=== PATIENT | female | born 1970 | race Caucasian/White ===

== ENCOUNTER 2017-11-29 08:59 | Emergency (ER) | END 2017-11-29 12:05 | disposition home or self-care (01) ==

== ENCOUNTER 2018-06-27 09:30 | Emergency (ER) | payer OTHER ==
[~2018-06-27] VITALS: Ht 172.7 cm; Wt 89.6 kg
[~2018-06-27 09:30] MED LIST: ACET500C5 PO; DOCU-144 PO; NITR-58 PO; ONDA4TAB8 PO; POLY17PO6 PO
[2018-06-27 09:39] VITALS: Ht 172.7 cm; Wt 89.6 kg
[2018-06-27] MEDS ORDERED: KETOROLAC 15 MG INJ IM STA (11:07)
[2018-06-27] MEDS ORDERED: IBUP-1542 PO (11:49)
--- NOTE | 2018-06-27 12:02 | ERD ---
ER Documentation Chief Complaint Chief Complaint Complains of right knee pain x 2 days HPI This is a 48-year-old female with a past medical history of hypertension who is presenting with right-sided knee pain. The patient was in the hospital a few days ago for her and was walking around a lot. She does not endorse any specific trauma or injury, but she did remember feeling her knee tweak while sitting down. Since then, she has had right knee swelling. She has had pain with range of motion. She has been ambulatory, but she has been limping. The knee is not warm. She has not noticed any redness or induration. She does not feel sick. She denies any fever or chills. She denies any possibility of a sexually transmitted infection. The patient does not have a history of gout. This is never happened before. The patient has been icing the knee. She is otherwise not been taking any oral medications. She is not attempted any wraps. The patient has no other complaints. The patient has had no headache or vision changes. The patient does not endorse neck or back pain. The patient denies lightheadedness or dizziness. The patient has had no chest pain or trouble breathing. The patient denies nausea or vomiting. The patient denies abdominal pain. The patient denies changes to bowel movements or urination. The patient has had no focal deficits. The patient has had no weakness or numbness or tingling to the face or extremities. ROS All systems reviewed and are negative except as per history of present illness. Medications Home Meds Active Scripts Ibuprofen* (Motrin*) 600 Mg Tab, 600 MG PO Q6H PRN for PAIN AND/OR INFLAMMATION, #30 TAB Prov:CARLOS VICTORIA MD 06/27/18 Acetaminophen* (Tylophen*) 500 Mg Capsule, 1 CAP PO Q6H PRN for PAIN AND OR ELEVATED TEMP, #30 CAP Prov:MICK RILEY PA-C 11/29/17 Docusate Sodium* (Colace*) 100 Mg Capsule, 100 MG PO TID, #30 CAP Prov:MICK RILEY PA-C 11/29/17 Polyethylene Glycol* (Miralax*) 17 Gm Powd.pack, 17 GM PO DAILY, #12 Prov:MICK RILEY PA-C 11/29/17 Ondansetron Hcl* (Zofran*) 4 Mg Tablet, 4 MG PO Q6H for NAUSEA AND/OR VOMITING, #30 TAB Prov:MICK RILEY PA-C 11/29/17 Nitrofurantoin Monohyd Macrocr* (Macrobid*) 100 Mg Capsr, 100 MG PO BID for 7 Days, CAP Prov:MICK RILEY PA-C 11/29/17 Allergies Allergies: Coded Allergies: No Known Allergy (Unverified , 11/29/17) PMhx/Soc History of Surgery: Yes (Maria Ivctoria) Anesthesia Reaction: No Hx Neurological Disorder: No Hx Respiratory Disorders: No Hx Cardiac Disorders: Yes (Hypertension) Hx Psychiatric Problems: No Hx Miscellaneous Medical Probl: No Hx Alcohol Use: No Hx Substance Use: No Hx Tobacco Use: No FmHx Family History: No diabetes Physical Exam Vitals Vital Signs Date Temp Pulse Resp B/P (MAP) Pulse Ox O2 O2 Flow FiO2 Time Delivery Rate 06/27/18 97.4 66 20 167/93 98 09:39 (117) Physical Exam Const: No acute distress Head: Atraumatic Eyes: Normal Conjunctiva ENT: Normal External Ears, Nose and Mouth. Neck: Full range of motion. No meningismus. Resp: Clear to auscultation bilaterally Cardio: Regular rate Abd: Non distended. Normal bowel sounds Skin: No petechiae or rashes Ext: No cyanosis, or edema. Right patella is ballotable, indicating a joint effusion; Lateral knee tenderness; able to range the knee fully, but it is painful to the patient; no erythema or induration or warmth. Neur: Awake and alert. No obvious focal deficits. Psych: Normal Mood and Affect Results 24 hrs Current Medications Medications Dose Sig/Severino Start Time Status Last (Trade) Ordered Route PRN Stop Time Admin Dose Reason Admin Ketorolac 15 mg ONCE STAT 06/27/18 DC 06/27/18 Tromethamine IM 11:07 11:17 (Toradol) 06/27/18 11:09 Procedures/MDM MDM The patient's presentation warrants further investigation. Previous medical records, if available, were reviewed. IMAGING Imaging and Radiology interpretation reviewed. XR R Knee FINDINGS: There is no acute fracture. Alignment is normal. There are small tricompartmental osteophytes. There is a [id number] nonspecific knee joint effusion. IMPRESSION: Moderate to large nonspecific knee joint effusion. No definite acute fracture is seen though if there is history of trauma CT or MRI is recommended for further evaluation. Electronically viewed and signed by .Ady Alejo MD, MD on 06/27/2018 11:43 TREATMENT/DISPOSITION The patient presents with right knee pain and a joint effusion. I have decreased suspicion for an infectious etiology. It is not warm to touch. Her symptoms and history are not consistent with septic arthritis. The patient is otherwise well-appearing with no fever and normal vital signs. A there is no benny rounding erythema. I do not suspect cellulitis or other soft tissue infection. Gouty arthritis is a consideration, but this may be treated with nonsteroidal anti-inflammatory medications in an outpatient setting. Osteoarthritis is also a consideration with tricompartmental osteophytes present. While the patient does not endorse a traumatic injury, a trauma still a possibility. The patient understands the need to follow-up with an orthopedic physician if her symptoms persist. The patient was treated with Toradol in the emergency department. Her knee was also wrapped with an Max bandage. She was offered crutches to help with am bulation. DISCHARGE Upon reevaluation of the patient, symptoms have improved. No emergent diagnoses were identified. At this time, I feel that the patient stable for discharge. The patient was instructed to follow-up with a primary care physician in 1-3 days. The patient will be given strict precautions with which to return to the emergency department. Prescriptions: Ibuprofen The patient's blood pressure was elevated at greater than 120/80 while in the emergency department. The patient was otherwise stable with no evidence of hypertensive urgency or emergency. The patient does not require admission for blood pressure control. I have discussed with the patient the risks of hypertension. I have instructed the patient to return to the ER for any new or worsening symptoms including chest pain, shortness of breath, headache, blurred vision, confusion, nausea, vomiting or LOC. I have advised the patient to follow up with the primary care physician for outpatient monitoring and treatment for hypertension in 1-3 days. Disclaimer: Inadvertent spelling and grammatical errors are likely due to EHR/dictation software use and do not reflect on the overall quality of patient care. Note that the electronic time recorded on this note does not necessarily reflect the actual time of the patient encounter. Departure Diagnosis: Primary Impression: Knee pain Chronicity: acute Laterality: right Qualified Codes: M25.561 - Pain in right knee Additional Impression: Joint effusion Condition: Stable Patient Instructions: Knee Pain, Uncertain Cause Referrals: BLUE MARIE MD call for orthopedic followup Additional Instructions: Thank you for for coming to [facility] for your care today. Please ask your nurse or provider if you have questions about your care today and do not leave until all your questions have been answered. Please use any medications given as directed and follow-up with your doctor (or the doctor you were referred to) in the next 1-3 days. If you do not have a primary care doctor you may follow up at the [facility] [place], [place] or [facility] (listed below). You may also use motrin and tylenol as needed for fever and/or pain unless inst ructed otherwise by your provider or nurse. Indications for more urgent follow- up have been discussed, but you may return to the Emergency Department at ANY time for any worrisome or worsening symptoms. If you have abdominal pain, please know that no test or exam you received is perfect and you should follow up within 8 hours for continued pain. If you had any imaging studies today, such as an X-Ray or CT Scan, these studies will be reviewed later by a radiologist. You will be called if there are important findings that were not identified today, so make sure the contact information you provided at registration is correct. If you received any narcotic pain control medicine today, such as Vicodin, Morphine or Dilaudid, your coordination and judgment may be affected for a number of hours. Please do not drive or operate heavy machinery, and you may want someone to assist you at home. If you were given a prescription for narcotic medication, be aware that it is very addictive- use sparingly and only if necessary. PLEASE SEEK FURTHER EVALUATION AND MANAGEMENT AT YOUR DOCTORS OFFICE WITHIN THE NEXT 1-3 DAYS. IT IS YOUR RESPONSIBILITY TO MAKE AN APPOINTMENT FOR FOLOW-UP CARE. IF YOU HAVE A PRIMARY DOCTOR, PLEASE CALL THEIR OFFICE TO SCHEDULE AN APPOINTMENT FOR FOLLOW UP. IF YOU DO NOT HAVE A PRIMARY DOCTOR YOU CAN CALL OUR PHYSICIAN REFERRAL HOTLINE AT IF YOU CAN NOT AFFORD TO SEE A PHYSICIAN YOU CAN CHOSE FROM THE FOLLOWING [facility]: [facility] [address] [facility]. [facility] [address]. [facility] [address] [facility] [address]. [facility] [address] [facility]. [facility]. [address] CARLOS ROBERTS MD Jun 27, 2018 12:02
== END 2018-06-27 12:16 | disposition home or self-care (01) ==
LOC: FTE 09:30
DX: M25.461 Effusion, right knee (principal); I10 Essential (primary) hypertension
CPT/HCPCS: 73562; 96372; J1885; Z7502